=== PATIENT | female | born 1990 | race Asian ===

== ENCOUNTER → 2016-07-29 | Outpatient (REF) ==
--- NOTE | 2016-07-30 02:28 | REP ---
Clinical: Employee health requirement . Comparison: None . Technique: PA and lateral. Findings: The mediastinum and cardiac silhouette are normal. The lung bran are clear and without acute consolidation, effusion, or pneumothorax. The skeletal structures are intact and normal. Impression: 1. No acute cardiopulmonary process. Signed by Mk Bolton MD 07/30/2016 02:20 A
== END ==
LOC: M LAB 11:30
PROVIDERS: ATTEND Nurse Practitioner Adult Health
DX: Z02.89 Encounter for other administrative examinations (principal)

== ENCOUNTER → 2016-12-20 | Outpatient (CLI) | payer BC, SELFPAY ==
[2016-12-20 15:31] LABS: BASO % 0.5 % (0.0-1.0); EOS # 0.3 10^3/uL (0.0-0.50); EOS % 5.4 % (0.0-3.0); IMMATURE GRANULOCYTE % 0.2 % (0-0); LYMPH # 1.8 10^3/uL (1.5-6.5); LYMPH % 29.5 % (24.0-44.0); MEAN CORPUSCULAR HEMOGLOBIN 22.3 pg (27.0-33.0); MEAN CORPUSCULAR HGB CONC 30.6 g/dl (32.0-36.5); MEAN CORPUSCULAR VOLUME 72.7 fl (80.0-96.0); MONO # 0.4 10^3/uL (0.0-0.8); MONO % 6.6 % (0.0-5.0); NEUTROPHILS # 3.5 10^3/uL (1.8-7.7); NEUTROPHILS % 57.8 % (36.0-66.0); PLATELET COUNT, AUTOMATED 218 10^3/uL (150-450); RED CELL DISTRIBUTION WIDTH 16.5 % (11.5-14.5); WHITE BLOOD COUNT 6.1 10^3/uL (4.0-10.0)
[2016-12-20 16:01] LABS: ANION GAP 3 MEQ/L (8-16); BLOOD UREA NITROGEN 12 MG/DL (7-18); CALCIUM LEVEL 8.7 MG/DL (8.5-10.1); CARBON DIOXIDE LEVEL 31 MEQ/L (21-32); CHLORIDE LEVEL 106 MEQ/L (98-107); CREATININE FOR GFR 0.48 MG/DL (0.55-1.02); GLOMERULAR FILTRATION RATE > 60.0 (>60); GLUCOSE, FASTING 86 MG/DL (70-105); SODIUM LEVEL 140 MEQ/L (136-145)
[2016-12-21 15:43] LABS: ALBUMIN 4.1 GM/DL (3.2-5.2); ALBUMIN/GLOBULIN RATIO 1.32 (1.00-1.93); ALKALINE PHOSPHATASE 63 U/L (45-117); ALT/SGPT 24 U/L (12-78); AST/SGOT 25 U/L (7-37); BILIRUBIN,DIRECT < 0.1 MG/DL (0.0-0.2); BILIRUBIN,TOTAL 0.2 MG/DL (0.2-1.0); TOTAL PROTEIN 7.2 GM/DL (6.4-8.2)
== END ==
LOC: M LAB 14:53
PROVIDERS: ATTEND Family Medicine
DX: E03.9 Hypothyroidism, unspecified (principal)

== ENCOUNTER → 2017-11-03 | Outpatient (CLI) | payer BC ==
[2017-11-03 17:38] LABS: HEMATOCRIT 37.1 % (36.0-47.0); HEMOGLOBIN 12.8 g/dl (12.0-15.5); MEAN CORPUSCULAR HEMOGLOBIN 29.3 pg (27.0-33.0); MEAN CORPUSCULAR HGB CONC 34.5 g/dl (32.0-36.5); MEAN CORPUSCULAR VOLUME 84.9 fl (80.0-96.0); PLATELET COUNT, AUTOMATED 202 10^3/uL (150-450); RED BLOOD COUNT 4.37 10^6/uL (4.00-5.40); RED CELL DISTRIBUTION WIDTH 11.3 % (11.5-14.5); WHITE BLOOD COUNT 5.6 10^3/uL (4.0-10.0)
[2017-11-03 18:43] LABS: ANION GAP 8 MEQ/L (8-16); BLOOD UREA NITROGEN 8 MG/DL (7-18); CALCIUM LEVEL 9.1 MG/DL (8.5-10.1); CARBON DIOXIDE LEVEL 29 MEQ/L (21-32); CHLORIDE LEVEL 107 MEQ/L (98-107); CREATININE FOR GFR 0.57 MG/DL (0.55-1.30); GLOMERULAR FILTRATION RATE > 60.0 (>60); GLUCOSE, FASTING 74 MG/DL (70-100); MAGNESIUM LEVEL 2.1 MG/DL (1.8-2.4); POTASSIUM SERUM 3.9 MEQ/L (3.5-5.1); SODIUM LEVEL 144 MEQ/L (136-145)
== END ==
LOC: M LAB 16:25
DX: R00.2 Palpitations (principal)
CPT/HCPCS: 83735

== ENCOUNTER → 2018-12-22 | Outpatient (CLI) | payer BC ==
[2018-12-22 07:36] LABS: BASO % 0.4 % (0.0-1.0); HEMATOCRIT 38.4 % (36.0-47.0); HEMOGLOBIN 12.8 g/dl (12.0-15.5); LYMPH # 1.3 10^3/uL (1.5-5.0); LYMPH % 28.1 % (24.0-44.0); MEAN CORPUSCULAR HEMOGLOBIN 29.7 pg (27.0-33.0); MEAN CORPUSCULAR HGB CONC 33.3 g/dl (32.0-36.5); MEAN CORPUSCULAR VOLUME 89.1 fl (80.0-96.0); MONO # 0.5 10^3/uL (0.0-0.8); MONO % 10.3 % (0.0-5.0); NEUTROPHILS # 2.8 10^3/uL (1.5-8.5); PLATELET COUNT, AUTOMATED 170 10^3/uL (150-450); RED BLOOD COUNT 4.31 10^6/uL (4.00-5.40); WHITE BLOOD COUNT 4.6 10^3/uL (4.0-10.0)
[2018-12-22 08:04] LABS: ALBUMIN 3.6 GM/DL (3.2-5.2); ALT/SGPT 28 U/L (12-78); BILIRUBIN,TOTAL 0.3 MG/DL (0.2-1.0); BLOOD UREA NITROGEN 18 MG/DL (7-18); CALCIUM LEVEL 9.1 MG/DL (8.5-10.1); CARBON DIOXIDE LEVEL 27 MEQ/L (21-32); CHLORIDE LEVEL 109 MEQ/L (98-107); CREATININE FOR GFR 0.61 MG/DL (0.55-1.30); GLOMERULAR FILTRATION RATE > 60.0 (>60); GLUCOSE, FASTING 83 MG/DL (70-100); POTASSIUM SERUM 3.8 MEQ/L (3.5-5.1); SODIUM LEVEL 142 MEQ/L (136-145); TOTAL PROTEIN 6.7 GM/DL (6.4-8.2)
== END ==
LOC: M LAB 07:06
PROVIDERS: ATTEND Family Medicine
DX: Z00.00 Encounter for general adult medical examination without abnormal findings (principal); E03.9 Hypothyroidism, unspecified; F32.9 Major depressive disorder, single episode, unspecified

== ENCOUNTER → 2019-07-13 | Outpatient (REF) | LOC: M LAB 14:53 | PROVIDERS: ATTEND Nurse Practitioner Adult Health | DX: Z00.00 Encounter for general adult medical examination without abnormal findings (principal) ==

== ENCOUNTER → 2021-10-27 | Outpatient (CLI) | payer BC ==
[2021-10-27 16:55] LABS: BASO % 0.3 % (0.0-1.0); LYMPH # 1.6 10^3/uL (1.5-5.0); MEAN CORPUSCULAR HEMOGLOBIN 26.5 pg (27.0-33.0); MEAN CORPUSCULAR HGB CONC 32.4 g/dl (32.0-36.5); MEAN CORPUSCULAR VOLUME 81.7 fl (80.0-96.0); MONO # 0.4 10^3/uL (0.0-0.8); MONO % 6.4 % (2.0-8.0); NEUTROPHILS # 3.8 10^3/uL (1.5-8.5); NEUTROPHILS % 65.1 % (36.0-66.0); PLATELET COUNT, AUTOMATED 237 10^3/uL (150-450); RED BLOOD COUNT 4.53 10^6/uL (4.00-5.40); WHITE BLOOD COUNT 5.8 10^3/uL (4.0-10.0)
[2021-10-27 17:39] LABS: ALBUMIN 3.9 GM/DL (3.2-5.2); ALT/SGPT 24 U/L (12-78); BILIRUBIN,TOTAL 0.4 MG/DL (0.2-1.0); BLOOD UREA NITROGEN 8 MG/DL (7-18); CALCIUM LEVEL 9.1 MG/DL (8.5-10.1); CARBON DIOXIDE LEVEL 29 MEQ/L (21-32); CHLORIDE LEVEL 105 MEQ/L (98-107); CHOLESTEROL LEVEL 166 MG/DL (<200); CHOLESTEROL RISK RATIO 3.018 (<5); CREATININE FOR GFR 0.54 MG/DL (0.55-1.30); FREE T4 1.17 NG/DL (0.76-1.46); GLOMERULAR FILTRATION RATE > 60.0 (>60); GLUCOSE, FASTING 91 MG/DL (70-100); HDL CHOLESTEROL 55 MG/DL (>40); LDL CHOLESTEROL 96 MG/DL (<100); NON-HDL-C 111 MG/DL; POTASSIUM SERUM 3.7 MEQ/L (3.5-5.1); SODIUM LEVEL 137 MEQ/L (136-145); TOTAL PROTEIN 7.4 GM/DL (6.4-8.2); TRIGLYCERIDES LEVEL 74 MG/DL (<150)
[2021-10-27 19:39] LABS: HEMOGLOBIN A1c 5.3 %
== END ==
LOC: M WUC 13:37
PROVIDERS: ATTEND Family Medicine
DX: Z00.00 Encounter for general adult medical examination without abnormal findings (principal); E03.9 Hypothyroidism, unspecified

== ENCOUNTER → 2022-06-22 | Outpatient (CLI) | payer BC | LOC: M LAB 14:31 | PROVIDERS: ATTEND Advanced Practice Midwife | DX: O36.80X0 Pregnancy with inconclusive fetal viability, not applicable or unspecified (principal) ==

== ENCOUNTER → 2022-07-20 | Outpatient (REF) | payer BC | LOC: M PLALAB 13:05 | PROVIDERS: ATTEND Advanced Practice Midwife | DX: Z12.4 Encounter for screening for malignant neoplasm of cervix (principal) ==

== ENCOUNTER → 2022-08-31 | Outpatient (REF) | payer BC | LOC: M PLALAB 13:46 | PROVIDERS: ATTEND Obstetrics & Gynecology | DX: R87.613 High grade squamous intraepithelial lesion on cytologic smear of cervix (HGSIL) (principal); R87.612 Low grade squamous intraepithelial lesion on cytologic smear of cervix (LGSIL); N72 Inflammatory disease of cervix uteri ==

== ENCOUNTER → 2022-09-01 | Outpatient (REF) | payer BC | LOC: M PLALAB 10:18 | PROVIDERS: ATTEND Obstetrics & Gynecology | DX: R87.613 High grade squamous intraepithelial lesion on cytologic smear of cervix (HGSIL) (principal); Z53.9 Procedure and treatment not carried out, unspecified reason ==

== ENCOUNTER → 2022-12-21 | Outpatient (CLI) | payer BC ==
[2022-12-21 15:44] LABS: HEMATOCRIT 36.7 % (36.0-47.0); HEMOGLOBIN 12.7 g/dl (12.0-15.5); MEAN CORPUSCULAR HEMOGLOBIN 28.7 pg (27.0-33.0); MEAN CORPUSCULAR HGB CONC 34.6 g/dl (32.0-36.5); PLATELET COUNT, AUTOMATED 215 10^3/uL (150-450); RED BLOOD COUNT 4.42 10^6/uL (4.00-5.40); WHITE BLOOD COUNT 8.2 10^3/uL (4.0-10.0)
[2022-12-21 16:18] LABS: THYROID STIMULATING HORMONE 7.176 uIU/ML (0.55-4.78)
[2022-12-21 16:20] LABS: FREE T4 1.18 NG/DL (0.89-1.76)
[2022-12-21 16:51] LABS: HIV 1&2 SCREEN NEGATIVE (NEGATIVE)
[2022-12-21 17:00] LABS: HEPATITIS C VIRUS ABY INDEX 0.05 INDEX (<0.8)
[2022-12-21 17:11] LABS: CHLAMYDIA DNA AMPLIFICATION POSITIVE (NEGATIVE); GC DNA AMPLIFICATION NEGATIVE (NEGATIVE)
== END ==
LOC: M PLALAB 12:50
PROVIDERS: ATTEND Specialist
DX: Z34.81 Encounter for supervision of other normal pregnancy, first trimester (principal)

== ENCOUNTER → 2023-02-17 | Outpatient (REF) | payer BC | LOC: M PLALAB 16:47 | PROVIDERS: ATTEND Obstetrics & Gynecology | DX: N87.1 Moderate cervical dysplasia (principal); A74.9 Chlamydial infection, unspecified | CPT/HCPCS: 87624; 87661; 87810; 87850; G0123 ==

== ENCOUNTER 2023-05-24 09:29 | Outpatient (CLI) | payer BC ==
[~2023-05-24] VITALS: Ht 162.6 cm; Wt 59.0 kg
[2023-05-24 09:55] VITALS: BP 106/65; O2SAT 100
[2023-05-24] MEDS: IRON SUCROSE 500 MG in NS 250 ML OVER 4 HRS IV ONE (10:33)
[2023-05-24 11:29] VITALS: BP 92/62; O2SAT 100
[2023-05-24 12:38] VITALS: BP 101/63; O2SAT 98
[2023-05-24 13:40] VITALS: BP 100/68; O2SAT 100
[2023-05-24 14:30] VITALS: BP 105/67; O2SAT 100
== END 2023-05-24 09:40 | disposition home or self-care (01) ==
LOC: M INFU 09:29
PROVIDERS: ATTEND Specialist
DX: D64.9 Anemia, unspecified (principal)
CPT/HCPCS: 96365; 96366; J1756

== ENCOUNTER → 2023-06-10 | Outpatient (CLI) | payer BC | LOC: M RAD 15:53 | PROVIDERS: ATTEND Obstetrics & Gynecology | DX: O99.283 Endocrine, nutritional and metabolic diseases complicating pregnancy, third trimester (principal) ==

== ENCOUNTER → 2023-06-29 | Outpatient (REF) | payer BC | LOC: M SFHCWAGY 12:15 | PROVIDERS: ATTEND Obstetrics & Gynecology | DX: Z36.89 Encounter for other specified antenatal screening (principal); Z3A.36 36 weeks gestation of pregnancy ==

== ENCOUNTER 2023-07-18 05:39 | Inpatient (IN) | payer BC ==
[2023-07-18] VITALS (10 sets, daily range): BP systolic 98–114; BP diastolic 58–77; TEMP 97.8; O2SAT 98–100
[~2023-07-18] VITALS: Ht 162.6 cm; Wt 61.3 kg
[~2023-07-18 05:39] MED LIST: COLA100C5 PO; FERR325T81 PO; PRENTAB53 PO; SYNT125T PO; SYNT175T2 PO
[2023-07-18] MEDS ORDERED: HOME MED LIST COMPLETE! XX SCH (06:05)
[2023-07-18 06:47] LABS: HEMATOCRIT 38.1 % (36.0-47.0); HEMOGLOBIN 12.4 g/dl (12.0-15.5); MEAN CORPUSCULAR HEMOGLOBIN 26.4 pg (27.0-33.0); MEAN CORPUSCULAR HGB CONC 32.5 g/dl (32.0-36.5); MEAN CORPUSCULAR VOLUME 81.2 fl (80.0-96.0); PLATELET COUNT, AUTOMATED 186 10^3/uL (150-450); RED BLOOD COUNT 4.69 10^6/uL (4.00-5.40); WHITE BLOOD COUNT 6.9 10^3/uL (4.0-10.0)
[2023-07-18] MEDS: LACTATED RINGER'S 1000 ML IV STA (06:49)
[2023-07-18] MEDS ORDERED: PHENYLephrine 500MCG 5ML (100MCG/ML) SYRINGE As Ordered ONE (07:18)
[2023-07-18] MEDS ORDERED: ePHEDrine SULFATE 25 MG/5 ML(5MG/ML) SYRINGE As Ordered ONE (07:18)
[2023-07-18] MEDS ORDERED: MORPHINE PRES-FREE INJ 10 MG/10 ML VIAL As Ordered ONE (07:18)
[2023-07-18] MEDS ORDERED: OXYTOCIN 30UNITS IN 0.9% NaCl 500ML IV BAG As Ordered ONE (07:18)
[2023-07-18] MEDS: LR 1,000 ML IV SCH ×2 (07:28→14:30)
[2023-07-18] MEDS: BICITRA 30ML SOLN UDC PO ONE (07:28)
[2023-07-18] MEDS: ceFAZolin SOD 2 GM in IV 1 EA IV ONE (07:29)
[2023-07-18 07:55] LABS: HEPATITIS C VIRUS ABY INDEX 0.03 INDEX (<0.8)
[2023-07-18] MEDS ORDERED: KETOROLAC 60MG 2ML VIAL As Ordered ONE (08:10)
[2023-07-18] MEDS ORDERED: ONDANSETRON 4MG 2ML VIAL As Ordered ONE (08:10)
[2023-07-18 08:22] LABS: CORD GAS ABE V -2.9; CORD GAS HCO3 V 22.4 MMOL/L; CORD GAS O2 SAT V 89.8 %; CORD GAS PCO2 V 41.2 mmHg; CORD GAS PH V 7.354 UNITS; CORD GAS PO2 V 47.6 mmHg; CORD GAS SBC V 21.9 MMOL/L; CORD GAS TCO2 V 23.7 MMOL/L
[2023-07-18 08:24] LABS: CORD GAS ABE A -2.5; CORD GAS HCO3 A 26.8 MMOL/L; CORD GAS O2 SAT A 33.5 %; CORD GAS PCO2 A 65.9 mmHg; CORD GAS PH A 7.227 UNITS; CORD GAS PO2 A 19.5 mmHg; CORD GAS SBC A 20.8 MMOL/L; CORD GAS TCO2 A 28.8 MMOL/L
[2023-07-18] MEDS ORDERED: fentaNYL 100 MCG/2 ML INJECTION IV PRN (08:35)
[2023-07-18] MEDS ORDERED: diphenhydrAMINE 50MG/ML VIAL IV PRN (08:35)
[2023-07-18] MEDS ORDERED: ONDANSETRON 4MG TAB PO PRN (08:35)
[2023-07-18] MEDS: SLF 3 ML SYR IV SCH (08:35)
[2023-07-18] MEDS ORDERED: PERCOCET 5MG/325MG TAB PO PRN (08:35)
[2023-07-18] MEDS ORDERED: SIMETHICONE 80MG CHEW TAB PO PRN (08:35)
[2023-07-18] MEDS ORDERED: NALOXONE INJ 0.4MG/1ML VIAL IV PRN ×2 (08:35)
[2023-07-18] MEDS ORDERED: MEPERIDINE 25 MG/ML 1ML VIAL IV PRN (08:35)
[2023-07-18] MEDS ORDERED: RHO(D) IMMUNE GLOBULIN/MALTOSE 500MCG(2500IU)/2.2ML VIAL (WINRHO) IM SCH (08:35)
[2023-07-18] MEDS ORDERED: LR 1,000 ML IV SCH (08:35)
[2023-07-18] MEDS ORDERED: **NOTE PATIENT COMMENT** MISC XX SCH (08:35)
[2023-07-18] MEDS ORDERED: ONDANSETRON 4MG 2ML VIAL IV PRN (08:35)
[2023-07-18] MEDS: OXYTOCIN DRIP 30 UNITS in IV 1 EA IV SCH (08:45)
[2023-07-18] MEDS: METOCLOPRAMIDE INJ 10MG/2ML VIAL IV PRN (13:43)
[2023-07-18] MEDS: PRENATAL VITAMINS CHEWABLE TABLET PO SCH (14:32)
[2023-07-18] MEDS: KETOROLAC 30 MG/ML 1ML VIAL IV SCH (15:14)
[2023-07-19 02:00] VITALS: BP 96/56; O2SAT 99
[2023-07-19 06:00] VITALS: BP 100/62; O2SAT 100
[2023-07-19] MEDS: LEVOTHYROXINE 125MCG TABLET (0.125MG) PO SCH (07:36)
[2023-07-19 08:08] LABS: MEAN CORPUSCULAR HEMOGLOBIN 26.6 pg (27.0-33.0); MEAN CORPUSCULAR HGB CONC 32.8 g/dl (32.0-36.5); MEAN CORPUSCULAR VOLUME 81.1 fl (80.0-96.0); PLATELET COUNT, AUTOMATED 143 10^3/uL (150-450)
[2023-07-19 08:09] LABS: HEMOGLOBIN 10.1 g/dl (12.0-15.5)
[2023-07-19 08:10] LABS: HEMATOCRIT 30.8 % (36.0-47.0)
[2023-07-19 08:43] LABS: ALBUMIN 2.1 G/DL (3.2-5.2); ALKALINE PHOSPHATASE 109 U/L (46-116); ALT/SGPT 18 U/L (7.0-40); AST/SGOT 36 U/L (<34); BILIRUBIN,TOTAL 0.3 MG/DL (0.3-1.2); BLOOD UREA NITROGEN < 5 MG/DL (9-23); CALCIUM LEVEL 8.8 MG/DL (8.5-10.1); CARBON DIOXIDE LEVEL 28 MMOL/L (20-31); CHLORIDE LEVEL 109 MMOL/L (98-107); CREATININE FOR GFR 0.46 MG/DL (0.55-1.30); GLOMERULAR FILTRATION RATE > 60.0 (>60); GLUCOSE, FASTING 69 MG/DL (60-100); POTASSIUM SERUM 3.9 MMOL/L (3.5-5.1); SODIUM LEVEL 142 MMOL/L (136-145)
[2023-07-19 11:00] VITALS: BP 106/68; O2SAT 100
[2023-07-19] MEDS: IBUPROFEN 800 MG TAB PO SCH (11:30)
[2023-07-19 14:00] VITALS: BP 117/75; O2SAT 99
[2023-07-19] MEDS: PERCOCET 5MG/325MG TAB PO PRN (17:20)
[2023-07-19 18:00] VITALS: BP 107/69; O2SAT 99
[2023-07-19] MEDS: DOCUSATE SODIUM 100MG CAPSULE PO PRN (19:02)
[2023-07-19] MEDS ORDERED: IBUP80TA PO (19:57)
[2023-07-19] MEDS ORDERED: OXYC1TAB23 PO (19:57)
[2023-07-19] MEDS ORDERED: COLA100C5 PO (19:57)
[2023-07-19 22:00] VITALS: BP 97/53; O2SAT 98
[2023-07-20 02:00] VITALS: BP 110/68; O2SAT 97
[2023-07-20 05:56] VITALS: BP 103/71; O2SAT 99
[2023-07-20] MEDS: MEASLES,MUMPS,RUBELLA VACCINE INJ (MMR-II) SC.IMMUN ONE (09:00)
[2023-07-20 10:00] VITALS: BP 104/66; O2SAT 98
[2023-07-20 14:00] VITALS: BP 113/58; O2SAT 99
== END 2023-07-20 16:55 | disposition home or self-care (01) | DRG 540 ==
LOC: M LDI 05:39 → M OBS 10:00
PROVIDERS: ADMIT Specialist; ATTEND Specialist
PROC: 10D00Z1 Extraction of Products of Conception, Low, Open Approach (ICD-10-PCS; principal; 2023-07-18 07:30)
DX: O32.1XX0 Maternal care for breech presentation, not applicable or unspecified (principal); Z37.0 Single live birth; Z3A.39 39 weeks gestation of pregnancy

== ENCOUNTER → 2023-10-12 | Outpatient (REF) | payer BC ==
[~2023-10-12] MED LIST changes: +IBUP80TA PO; +OXYC1TAB23 PO
== END ==
LOC: M SFHCWAGY 15:30
PROVIDERS: ATTEND Specialist
DX: N87.1 Moderate cervical dysplasia (principal)

== ENCOUNTER → 2023-12-09 | Outpatient (CLI) | payer BC, MEDICARE ==
[2023-12-09 16:52] LABS: ALBUMIN 3.7 G/DL (3.2-5.2); ALKALINE PHOSPHATASE 62 U/L (35-104); ALT/SGPT 23 U/L (7.0-40); AST/SGOT 28 U/L (<34); BILIRUBIN,TOTAL 0.5 MG/DL (0.3-1.2); BLOOD UREA NITROGEN 9 MG/DL (9-23); CARBON DIOXIDE LEVEL 31 MMOL/L (20-31); CHLORIDE LEVEL 104 MMOL/L (98-107); CHOLESTEROL LEVEL 169 MG/DL (<200); CHOLESTEROL RISK RATIO 2.87 (<5); CREATININE FOR GFR 0.53 MG/DL (0.55-1.30); GLOMERULAR FILTRATION RATE > 60.0 (>60); GLUCOSE, FASTING 68 MG/DL (60-100); HDL CHOLESTEROL 58.8 MG/DL (>40); LDL CHOLESTEROL 100.8 MG/DL (<100); NON-HDL-C 110.2 MG/DL; POTASSIUM SERUM 3.7 MMOL/L (3.5-5.1); SODIUM LEVEL 140 MMOL/L (136-145); TOTAL PROTEIN 6.8 G/DL (5.7-8.2); TRIGLYCERIDES LEVEL 47 MG/DL (<150)
[2023-12-09 16:53] LABS: FREE T4 1.57 NG/DL (0.89-1.76)
[2023-12-09 16:57] LABS: BASO % 0.5 % (0.0-1.0); EOS # 0.1 10^3/uL (0.0-0.5); EOS % 1.6 % (0.0-3.0); HEMATOCRIT 36.8 % (36.0-47.0); HEMOGLOBIN 12.2 g/dl (12.0-15.5); LYMPH # 2.1 10^3/uL (1.5-5.0); LYMPH % 47.5 % (24.0-44.0); MEAN CORPUSCULAR HEMOGLOBIN 27.5 pg (27.0-33.0); MEAN CORPUSCULAR HGB CONC 33.2 g/dl (32.0-36.5); MEAN CORPUSCULAR VOLUME 82.9 fl (80.0-96.0); MONO # 0.3 10^3/uL (0.0-0.8); NEUTROPHILS # 1.9 10^3/uL (1.5-8.5); NEUTROPHILS % 43.2 % (36.0-66.0); PLATELET COUNT, AUTOMATED 210 10^3/uL (150-450); RED BLOOD COUNT 4.44 10^6/uL (4.00-5.40); WHITE BLOOD COUNT 4.4 10^3/uL (4.0-10.0)
[2023-12-09 17:00] LABS: THYROID STIMULATING HORMONE 0.133 uIU/ML (0.55-4.78)
== END ==
LOC: M WUC 14:18
PROVIDERS: ATTEND Family Medicine
DX: Z00.00 Encounter for general adult medical examination without abnormal findings (principal); E03.9 Hypothyroidism, unspecified

== ENCOUNTER → 2024-01-04 | Outpatient (REF) | payer BC | LOC: M LAB REF 17:55 | PROVIDERS: ATTEND Otolaryngology | DX: L90.5 Scar conditions and fibrosis of skin (principal) ==

== ENCOUNTER → 2024-04-12 | Outpatient (REF) | payer BC, MEDICARE ==
[2024-04-14 14:23] LABS: HPV APTIMA Not Detected (Not Detected)
== END ==
LOC: M SFHCWAGY 17:56
PROVIDERS: ATTEND Specialist
DX: D06.9 Carcinoma in situ of cervix, unspecified (principal)
CPT/HCPCS: 87624; G0123